=== PATIENT | female | born 1960 | race Caucasian/White ===

== ENCOUNTER 2024-04-27 09:30 | Emergency (ER) | payer MEDICARE ==
[~2024-04-27] VITALS: Ht 165.1 cm; Wt 77.3 kg
[2024-04-27 09:32] VITALS: TEMP 97.5
[2024-04-27 10:41] LABS: BASOPHILS % (AUTO) 0.1 % (0-1); EOSINOPHILS % (AUTO) 0.1 % (0-6); HEMATOCRIT 41.9 % (35.0-45.0); HEMOGLOBIN 14.2 g/dl (12.0-16.0); LYMPHOCYTES # (AUTO) 0.8 X10'3 (1.1-4.8); LYMPHOCYTES % (AUTO) 25.2 % (21-51); MEAN CORPUSCULAR HEMOGLOBIN 28.4 PG (27.0-31.0); MEAN CORPUSCULAR VOLUME 83.5 FL (78-98); MEAN PLATELET VOLUME 8.1 FL (7.4-10.4); MONOCYTES # (AUTO) 0.3 X10'3 (0-0.9); MONOCYTES % (AUTO) 8.7 % (2-12); NEUTROPHILS # (AUTO) 2.2 X10'3 (1.8-7.7); NEUTROPHILS % (AUTO) 65.9 % (42-75); PLATELET COUNT 122 X10'3 (140-440); RED BLOOD COUNT 5.02 X10'6 (4.20-5.60); RED CELL DISTRIBUTION WIDTH 13.6 % (11.5-14.5); WHITE BLOOD COUNT 3.3 X10'3 (4.5-11.0)
[2024-04-27 10:55] LABS: ALBUMIN 3.5 G/DL (3.4-5.0); ANION GAP 6 (8-16); BLOOD UREA NITROGEN 13 MG/DL (7-18); BUN/CREATININE RATIO 17.8 (10.0-20.0); CALCIUM 9.6 MG/DL (8.5-10.1); CHLORIDE 103 MMOL/L (99-107); CREATININE 0.73 MG/DL (0.40-0.90); GLUCOSE 88 MG/DL (70-104); POTASSIUM 3.6 MMOL/L (3.5-5.1); SODIUM 140 MMOL/L (135-145); TOTAL CARBON DIOXIDE 31.3 MMOL/L (24-32); eCRCL 72 ML/MIN; eGFR 81 ML/MIN
[2024-04-27] MEDS: meclizine 12.5mg tablet PO ONE (11:56)
[2024-04-27] MEDS ORDERED: MECL-302 PO (12:01)
[2024-04-27] MEDS: potassium Cl 20 mEq SR tablet PO ONE (12:01)
[2024-04-27 13:12] VITALS: BP 144/92; PULSE 61; RESP 16; O2SAT 97
== END 2024-04-27 13:14 | disposition home or self-care (01) ==
LOC: ER 09:30
DX: R42 Dizziness and giddiness (principal); I10 Essential (primary) hypertension; Z79.899 Other long term (current) drug therapy
CPT/HCPCS: 36415; 80048; 85025; 99283; J8597

== ENCOUNTER 2024-04-27 13:58 | Emergency (ER) | payer MEDICARE ==
[~2024-04-27] VITALS: Ht 162.6 cm; Wt 68.0 kg
[~2024-04-27 13:58] MED LIST: MECL-302 PO
[2024-04-27 16:48] VITALS: BP 132/82; PULSE 84; RESP 18; TEMP 98.4; O2SAT 97
== END 2024-04-27 16:51 | disposition home or self-care (01) ==
LOC: ER 13:59
DX: M71.21 Synovial cyst of popliteal space [Baker], right knee (principal); M25.561 Pain in right knee; M17.11 Unilateral primary osteoarthritis, right knee; Z79.899 Other long term (current) drug therapy
CPT/HCPCS: 73564; 76881; 99284

== ENCOUNTER 2024-12-10 20:23 | Inpatient (IN) | payer MEDICARE, OTHER ==
[~2024-12-10] VITALS: Ht 165.1 cm; Wt 80.5 kg
--- NOTE | 2024-12-10 20:39 | ELECTROCARDIOGRAPH REPORT ---
[facility] Test Date: 2024-12-10 Test Time: 20:35:42 Pat Name: EVAN THORPE Department: EMERGENCY ROOM Room: Gender: F Golf Sales Manager: KATIE : 1960 Requested By: JAMAL RAMIREZ Order Number: [id number] Reading MD: Measurements Intervals [place] Rate: 103 P: 46 RI: 149 QRS: 121 QRSD: 103 T: 22 QT: 352 QTc: 461 Interpretive Statements Sinus tachycardia Left posterior fascicular block Low voltage, precordial leads Please click the below link to view image of tracing.
--- NOTE | 2024-12-10 21:19 | RADIOLOGY REPORT ---
EXAM: DI CHEST,SINGLE VIEW TECHNIQUE: Single frontal chest radiograph CLINICAL HISTORY: CP COMPARISON: None Findings/Impression: Frontal chest radiograph demonstrates no acute osseous or superficial soft tissue abnormalities. The trachea is midline. The cardiac silhouette and mediastinum are within normal limits. No pneumothorax, pleural effusions, or consolidations.
--- NOTE | 2024-12-10 21:23 | Physician Documentation ---
History of Present Illness Chief Complaint: Abdominal Pain Stated Complaint: VOMITING OK to notify your PCP?: Yes Primary Medical Doctor: DR. MCKEON Source: patient Mode of Arrival: POV Exam Limitations: no limitations HPI 64-year-old female presents with epigastric abdominal pain pain beneath lower portion of bilateral ribs for the past hour. She was recently at a birthday libertarian 2 hours prior and felt normal. She has had nausea vomiting and diarrhea. She has a history of cholecystectomy. No daily ETOH intake or history of pancreatitis. The home Additional note by Benjamin Ramirez, DO: I took over the care of this patient from previous physician. I reviewed any previous notes available, obtain my own history, review of systems and physical examination was performed by myself. This is a 64-year-old female status post cholecystectomy many years ago, presents for evaluation of right upper quadrant abdominal pain that began shortly prior to arrival in the emergency department. Sudden onset. Severe cramping pain. Accompanied by nausea and vomiting. Does report some diarrhea. The particular palliating factors. Did not attempt to treat it. Reports chills. Denies any fever, denies chest pain or difficulty breathing. No concern for tobacco, alcohol or illicit substances abuse. Medication Reconciliation Allergies: Coded Allergies: No Known Allergies (Unverified , 04/27/24) Scheduled PRN Meclizine HCl (Meclizine HCl), 1 TAB PO Q6H PRN for vertigo Review of Systems All Other Systems at this time: Reviewed and Negative ROS 10 point review of systems was performed and unless noted above in HPI is negative for acute process/complaint. Physical Exam Vital Signs: RN Vital Signs have been reviewed: Yes, Temperature: 99.4, Source: Oral, Heart Rate: 110, Respiratory Rate: 20, BP: 151/90, Pulse Oximetry: 96, Weight: 80.500 Oxygen Flow Rate: 0 Pulse Oximetry Reflects: adequate oxygenation Physical Exam GENERAL: Awake, alert, oriented, GCS 15, no apparent distress, non-toxic appearing, answers questions, follows commands appropriately. Examined in bed 8., accompanied by significant other HEENT: Atraumatic, normocephalic, pupils equal, extraocular muscles intact, sclerae anicteric, mucus membranes moist, oropharynx is clear, no stridor. NECK: supple, full active range of motion, trachea midline, no thyromegaly, no lymphadenopathy, no JVD. CARDIOVASCULAR: regular rate/rhythm, no murmurs/gallops/rubs, Pulses are 2+ in all extremities and symmetric. Capillary refill less than 2 seconds. PULMONARY: Nonlabored, good air movement ,no respiratory distress, speaking in full sentences, clear to auscultation bilaterally, no wheezing, no ronchi, no rales, no accessory muscle use. GASTROINTESTINAL: Soft, right upper quadrant tenderness to palpation reproducing chief complaint, non-distended, normal active bowel sounds, no organomegaly, no pulsatile masses, no CVA tenderness. NEUROLOGIC: Lucid with normal mental status. Normal facial symmetry. Moves all extremities symmetrically and with purpose. No truncal ataxia. Speech is fluid without evidence of dysarthria or aphasia, no focal deficits appreciated. MUSCULOSKELETAL: There is full range of motion of all extremities. There is no joint pain or joint swelling or joint erythema. There is no muscle pain or tenderness or swelling. EXTREMITIES: warm, well-perfused, no cyanosis, no clubbing, no edema, no acute deformities. Skin: warm, dry, no rashes or lesions, no jaundice, no petechiae orpurpura. No ecchymosis. PSYCHIATRIC: Normal affect, normal insight, normal concentration. Focused exam: [No guarding or rebound] Progress Results/Orders Results/Orders Vital Signs 12/10/24 20:35 Temp 99.4 Pulse 110 Resp 20 B/P (MAP) 151/90 Pulse Ox 96 O2 Flow Rate 0 Medical Decision Making Findings Facility Status: ED Holds, [facility] The plan was discussed with the patient, who demonstrates clear understanding of the plan and is in agreement with the plan unless otherwise noted in the chart. All questions have been answered, all concerns were addressed unless otherwise documented. I was available throughout their ED stay for frequent reassessment and questions. Differential Diagnoses (considered and possible or likely): [Differential diagnosis considered includes acute appendicitis, acute cholecystitis, pancreatitis, gastritis, PUD, diverticulitis, mesenteric ischemia, abdominal aortic aneurysm, bowel obstruction, enteritis, colitis, fecal impaction, volvulus, IBS, inflammatory bowel disease, specific food intolerance, peritonitis, perforated viscous, malignancy, UTI, abscess, and abdominal pain NOS. Pelvic source of pain was also considered including endometritis, dysmenorrhea, ovarian cyst, ovarian torsion, PID, TOA, cervicitis, vaginitis, or uterine fibroid. History, physical exam, and workup exclude many of the more serious causes listed above. ] ??Differential Diagnoses (considered and unlikely, not requiring evaluation currently): [Aortic/great vessels dissection was considered but it is unlikely based on absence of ripping, tearing, migratory chest pain, absence of syncope or focal neurologic deficits, physical examination indicating equal and symmetric pulses.] MDM Data Please see [facility] for the following: Independent Historians and external Records Review. Historian: [Patient] Independent Historians: ?[None] Medication Management: [Reviewed medication list] Social History and determinants: [Reviewed] Please see the body of the note for the following: Any independent interpretations of ECG, imaging studies. All vitals signs/haemodynamics, ordered tests were independently reviewed and interpreted by myself. Nursing triage complaint and vitals reviewed, additional nursing notes were reviewed as available and I agree unless otherwise noted or documented in contradiction in the chart Vital Signs: Independently reviewed Labs: Independently interpreted Imaging: Independently interpreted Old Medical Records: Independently reviewed, see [facility] for relevant summary and information Pulse Oximetry: [97%] interpreted as [normal on room air] by me [Almond Paste Mixer: [Regular Rate, Regular rhythm, no ectopy, NSR] reviewed and interpreted by me] Additionally notably showing: [Hemodynamics reviewed. Initially tachycardic, improved with rest and fluids and pain palliation. No evidence of hypotension respiratory distress. CBC shows leukopenia, 90% neutrophilic predominance, thrombocytopenia. No anemia. Chemistry shows markedly elevated bilirubin, AST, ALT, alkaline us for any this concerning for biliary obstruction. Lipase is normal. Ethanol was negative. CT of the abdomen and pelvis shows biliary obstruction. Duodenal diverticulum noted.] Tests considered but not ordered include: [Initially did not consider ultrasound considering the patient is post cholecystectomy] Social Determinants of Health Impact: Patient was evaluated in [facility], or [facility] [place] access to healthcare due to below par ratio of patient to medical providers. [] Comorbid Conditions Impacting Present Evaluation and Care/Treatment: [See list] Management Discussions with other Healthcare Providers: [Hospitalist regarding admission] Treatment and Disposition Medication Management (Given or considered): [Pain and nausea management]. See EMR for details Consideration for Hospitalization/Escalation/Deescalation of Care: Admission for inpatient treatment is necessary for further management of her biliary obstruction with the GI and surgical consultation ?ED Course:?[Pain improved] ?Shared decision making:?[] Code status:?FULL Please see the full Electronic Medical Record for full details of nursing documentation, medications list, other records of complete past medical history and conditions, vital signs, laboratory studies, and any radiologic study interpretations by radiologists. Portions of this note were completed using [employer] dictation software and as a result there may exist minor errors in spelling. I have reviewed elements of past family and social history and agree as included in note. Departure Disposition: 09 ADMITTED INPATIENT Admitted to Inpatient Unit: to hospitalist Impression: Primary Impression: Biliary obstruction Additional Impressions: Right upper quadrant pain Nausea and vomiting Status post cholecystectomy Referrals: NO PRIMARY CARE PROVIDER (PCP) Additional Comment Medical Screen Exam This patient recieved a medical screening examination. After reviewing the individual's medical complaints with presenting symptoms and performing an appropriate physical examination, it was determined that no immediate life- threatening emergency medical condition is present. This individual is also not a women having contractions. Signature Scribe Signature: No scribe Attestation: This note accurately reflects clinical decisions, work performed by myself, DO JAXON Gallegos ASHLEY D FNP Dec 10, 2024 21:23 BENJAMIN RAMIREZ DO Dec 11, 2024 01:08
[2024-12-10 21:29] LABS: BASOPHILS % (AUTO) 0.2 % (0-1); EOSINOPHILS % (AUTO) 0 % (0-6); HEMATOCRIT 43.6 % (35.0-45.0); HEMOGLOBIN 15.2 g/dl (12.0-16.0); LYMPHOCYTES # (AUTO) 0.3 X10'3 (1.1-4.8); LYMPHOCYTES % (AUTO) 8.1 % (21-51); MEAN CORPUSCULAR HEMOGLOBIN 28.3 PG (27.0-31.0); MEAN PLATELET VOLUME 8.4 FL (7.4-10.4); MONOCYTES # (AUTO) 0.1 X10'3 (0-0.9); NEUTROPHILS # (AUTO) 3.5 X10'3 (1.8-7.7); NEUTROPHILS % (AUTO) 89.7 % (42-75); PLATELET COUNT 111 X10'3 (140-440); RED BLOOD COUNT 5.38 X10'6 (4.20-5.60); RED CELL DISTRIBUTION WIDTH 15.3 % (11.5-14.5); WHITE BLOOD COUNT 3.9 X10'3 (4.5-11.0)
[2024-12-10 21:56] LABS: ALANINE AMINOTRANSFERASE 222 U/L (12-78); ALBUMIN 3.9 G/DL (3.4-5.0); ALBUMIN/GLOBULIN RATIO 1.2 (1.1-1.5); ALKALINE PHOSPHATASE 264 IU/L (46-116); ANION GAP 9 (8-16); ASPARTATE AMINO TRANSFERASE 483 U/L (10-37); BILIRUBIN,TOTAL 3.7 MG/DL (0.1-1.0); BLOOD UREA NITROGEN 10 MG/DL (7-18); BUN/CREATININE RATIO 12.5 (10.0-20.0); CALCIUM 9.4 MG/DL (8.5-10.1); CHLORIDE 102 MMOL/L (99-107); GLUCOSE 151 MG/DL (70-104); LIPASE 24 U/L (16-77); PRO BRAIN NATRIURETIC PEPTIDE 100 PG/ML (0-125); SODIUM 142 MMOL/L (135-145); TOTAL CARBON DIOXIDE 30.6 MMOL/L (24-32); TOTAL PROTEIN 7.1 G/DL (6.4-8.2); eCRCL 65 ML/MIN; eGFR 72 ML/MIN
[2024-12-10 22:04] LABS: POTASSIUM 2.7 MMOL/L (3.5-5.1)
[2024-12-10] MEDS ORDERED: POTASSIUM BICARB 20meq eff tab 20 MEQ TABLET.EFF PO ONE (22:15)
[2024-12-10] MEDS ORDERED: iohexol 300mg/ml 100ml inj. ONE (22:54)
[2024-12-10 23:31] LABS: ETHANOL < 10 MG/DL (<10)
[2024-12-10] MEDS: potassium Cl 20 mEq SR tablet PO STA (23:52)
--- NOTE | 2024-12-11 00:35 | RADIOLOGY REPORT ---
CT OF THE ABDOMEN AND PELVIS WITH CONTRAST. HISTORY: abd pain COMPARISON: None TECHNIQUE: Helical axial CT images of the abdomen and pelvis were obtained with intravenous contrast. Multiplanar reformats. One or more of the following radiation dose reduction techniques were used fo r this examination: automated exposure control, adjustment of the mA and/or kV according to patient s ize, use of iterative reconstruction technique. FINDINGS: Imaged lung bases are grossly clear. Hepatobiliary: Intra and extrahepatic biliary ductal dilatation. The common bile duct is dilated to approximately 2.4 cm, tapering distally. The gallbladder is surgically absent. Of note, there is an a ir and debris filled diverticulum which appears to arise from the medial aspect of the distal 2nd por tion of the duodenum. This measures approximately 3 x 2 cm in axial dimensions and extends to the amp man, compressing the anterior aspect of the distal common bile duct. Pancreas: Fatty atrophic changes. Spleen: Negative. Adrenal Glands: Negative. Kidneys and collecting system: No hydroureteronephrosis. Retroperitoneum: No evidence of abdominal aortic aneurysm. Lymph nodes: No discretely enlarged lymph nodes identified. Bowel: No evidence of bowel obstruction. Normal caliber appendix. No free intraperitoneal air or flui d identified. Colonic diverticulosis without definite CT evidence of diverticulitis at this time. Pelvis: No sizable bladder calculus. Osseous structures: No destructive osseous lesions identified. Advanced degenerative changes at L5-S1 with grade 1 anterolisthesis and associated bilateral pars defects. 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 Recommend GI/Ross rgical consultation.
[2024-12-11] MEDS: ondansetron/PF 4mg/2ml inj IV ONE (01:11)
[2024-12-11] MEDS: morphine 4 MG/ML inj SYRINge IV ONE (01:11)
--- NOTE | 2024-12-11 01:23 | RADIOLOGY REPORT ---
EXAM: US ULTRASOUND OF ABDOMEN HISTORY: ruq pain COMPARISON: None TECHNIQUE: Real-time grayscale and color flow images of the abdomen were obtained. Findings/ IMPRESSION: Liver measures 16 cm craniocaudal with normal echotexture. Portal vein demonstrates hepatopetal flow. The gallbladder is surgically absent. Common bile duct measuring 0.5 cm. Pancreas not visualized due to overlying bowel gas. The right kidney measures 10 cm in length without evidence of stones or hyd ronephrosis.
[2024-12-11] MEDS ORDERED: HYDR25TA4 PO (01:40)
[2024-12-11] MEDS ORDERED: LEVO150T8 PO (01:40)
[2024-12-11] MEDS ORDERED: ASPI-1468 PO (01:40)
[2024-12-11] MEDS ORDERED: ACYC-126 PO (01:40)
[2024-12-11] MEDS ORDERED: COLC0.6T72 PO (01:40)
[2024-12-11] MEDS ORDERED: HYDR-3964 PO (01:40)
[2024-12-11] MEDS ORDERED: TRAZ-251 (01:40)
[2024-12-11] MEDS ORDERED: NAPR-1168 PO (01:40)
[2024-12-11] MEDS ORDERED: LIOT5TAB10 PO (01:40)
[2024-12-11] MEDS ORDERED: SEMA0.258 SQ (01:40)
[2024-12-11] MEDS ORDERED: ENAL-78 PO (01:40)
[2024-12-11] MEDS ORDERED: magnesium sulf-water 2g/50mL 50 ML IV PRN (03:10)
[2024-12-11] MEDS ORDERED: morphine 2 MG/ML inj. syringe IV PRN (03:10)
[2024-12-11] MEDS ORDERED: magnesium sulf-water 4G/100mL 100 ML IV PRN (03:10)
[2024-12-11 03:17] VITALS: BP 105/70; PULSE 95; RESP 16; TEMP 97.7; O2SAT 94
--- NOTE | 2024-12-11 03:17 | HISTORY AND PHYSICAL-Residence ---
History & Physical Providers to CC Resident Creating Document: EDWARD TORRES, RES ~ History of Present Illness Primary Medical Doctor: DR. MCKEON Reason for Admit\Complaint: Abdominal pain History of Present Illness This is a 64-year-old female with past medical history of cholecystectomy, hypertension, hypothyroidism came to the ER with a chief complaint of upper abdominal pain which started at 3:00 p.m. after a birthday libertarian. She described the pain as dull aching, located in the epigastric and right upper quadrant region, nonradiating, constant, 7/10. She also had associated nausea and three episodes of vomiting, also had did four episodes of loose and watery bowel movements. Also complained of fever with chills.. Nobody from the libertarian had similar symptoms. Denies any recent travel history. Denies any similar complaints. Allergies: Coded Allergies: No Known Allergies (Unverified , 04/27/24) Home Medications Home Medications Active Reported Hydrocodon-Acetaminophen 5-325 (Hydrocodone Bit/Acetaminophen) 5 Mg-325 Mg Tablet 1 Tab PO Q4H PRN Aspirin EC (Aspirin) 325 Mg Tablet.dr 1 Tab PO DAILY Acyclovir 400 Mg Tablet 1 Tab PO TID Trazodone HCl 50 Mg Tablet Hydrochlorothiazide 25 Mg Tablet 1 Tab PO BID Liothyronine Sodium 5 Mcg Tablet 1 Tab PO DAILY Levothyroxine Sodium 150 Mcg Tablet 1 Tab PO DAILY Enalapril Maleate 10 Mg Tablet 1 Tab PO DAILY Ozempic (Semaglutide) 0.25 Mg/0.368 Ml Pen.injctr 0.5 Mg SQ Q7D Naproxen 500 Mg Tablet 1 Tab PO BID Colchicine 0.6 Mg Tablet 1 Tab PO DAILY Past Medical History Past Medical History Hypertension Hypothyroidism Past Surgical History Surgical History Comment Cholecystectomy in 1995 Past Social History Social History Comment Denies any history of smoking Quit drinking alcohol in 2012 Denies any history of drug use Lives with her at home. ROS All Other Systems: Reviewed and Negative Constitutional: Denies: no symptoms reported, see HPI, chills, diaphoresis, fever, malaise, weakness, other Eyes: Denies: no symptoms reported, see HPI, pain, discharge, blurred vision, double vision, itching, photophobia, redness, tearing, other ENT: Denies: no symptoms reported, see HPI, ear pain, ear bleeding, ear discharge, hearing loss, ear ringing, nose pain, nose bleeding, nose congestion, nose discharge, throat pain, throat swelling, voice change, mouth pain, mouth bleeding, mouth swelling, other Respiratory: Denies: no symptoms reported, see HPI, cough, orthopnea, shortness of breath, SOB with exertion, SOB at rest, stridor, wheezing, hemoptysis, pain with breathing, other Cardiovascular: Denies: no symptoms reported, see HPI, chest pain, left arm pain, diaphoresis, lightheadedness, syncope, edema, palpitations, irregular heart rate, other Gastrointestinal: Reports: abdominal pain, vomiting Genitourinary: Denies: no symptoms reported, see HPI, burning, discharge, dysuria, frequency, flank pain, hematuria, incontinence, pain, decreased urine output, urgency, other Neurological: Denies: no symptoms reported, see HPI, speech problem, headache, dizziness, fainting, tingling, left sided numbness, right sided numbness, left sided weakness, right sided weakness, problems walking, unable to move lower ext, unable to move upper ext, petit mal seizures, tonic-clonic seizures, cognitive dysfunction, other Musculoskeletal: Denies: no symptoms reported, see HPI, pain, swelling, back pain, gout, joint pain, joint swelling, muscle pain, muscle swelling, muscle stiffness, neck pain, other Exam Vitals: Vital Signs Date Time Temp Pulse Resp B/P (MAP) Pulse Ox O2 Delivery O2 Flow Rate FiO2 12/11/24 02:54 16 12/11/24 00:22 99.4 82 136/76 (96) 96 0 General: General Awake and Alert, in mild distress because of pain HEENT: Conjunctiva pink, Sclera clear Neck: Supple without masses and tenderness. Resp: Bilateral breath sounds are clear. Heart: Regular Rate and rhythm, normal S1 and S2 without murmur, rub or gallop. Abdomen: Soft , diffuse tenderness, no guarding, no rigidity, bowel sounds heard, no organomegaly Extremities: No cyanosis,clubbing, no pedal Skin: Warm and Dry. Neurology: No focal motor or sensory deficits. Diagnostic Data Last Recorded Lab Results: 12/10/24210112/10/242101 Advance Care Planning Advanced Care plannin - 30 Minutes (I spent 17 minutes in discussing various resuscitative measures, the patient chose to be full code.) Additional Plan Assessment This is a 64-year-old female with history of cholecystectomy came to the ER with a chief complaint of abdominal pain. Plan Abdominal pain likely secondary to biliary obstruction AST, ALT 483, 222, alk-phos 264, total bilirubin 3.7 Lipase levels normal WBC count normal, procalcitonin ordered Direct bilirubin levels ordered Abdominal CT showed distal biliary obstruction secondary to periampullary duodenal diverticulum. Abdominal ultrasound shows CBD measuring 0.5 cm NPO. Pain management-morphine p.r.n. Started on Zosyn and D5 NS Consult gastroenterology in the morning for possible endoscopy/ERCP. Hypokalemia Potassium 2.7 Started on potassium replacement protocol. History of hypertension Patient's blood pressure is in the normal range Continue patient's home medication hydrochlorothiazide 25 mg and enalapril 10 mg daily History of hypothyroidism Continue patient's home medication levothyroxine and liothyronine Code status: Full code DVT prophylaxis: Heparin Diet: NPO Lines/tubes: Peripheral IV line State: Guarded Edward Torres M.D PGY1 pt was seen and discussed with resident team Biliary obstruction suspected GI /Surgery consult Zosyn started IVF NPO pain control/antiemetics Date of Service: Dec 11, 2024 Billing Provider: PARK ARTEAGA MD, PRAVAHIKA, RES Dec 11, 2024 03:17 PARK ARTEAGA MD Dec 11, 2024 08:22
[2024-12-11 03:22] LABS: BILIRUBIN,URINE NEGATIVE (Neg); CLARITY,URINE CLEAR (Clear); GLUCOSE, URINE NEGATIVE (Neg); KETONES,URINE NEGATIVE (Neg); LEUKOCYTE ESTERASE ,URINE NEGATIVE (Neg); NITRITES, URINE NEGATIVE (Neg); OCCULT BLOOD,URINE TRACE-INTACT (Neg); PH,URINE 6.5 (4.8-8.0); PROTEIN,URINE 30 mg/dl (Neg)
[2024-12-11] MEDS: normal saline 1000ml 1,000 ML IV SCH (03:31)
[2024-12-11 03:32] LABS: COLOR,URINE GREEN (Yellow); UA COLLECTION TYPE CLN CATCH MIDSTREAM
[2024-12-11 03:34] LABS: BACTERIA,URINE NONE SEEN /HPF (Neg); SQUAMOUS EPITHELIAL CELL,UR FEW /LPF (FEW)
[2024-12-11 03:35] LABS: WBC,URINE NONE SEEN /HPF (0-4)
[2024-12-11] MEDS: acetaminophen 325mg tablet PO PRN (04:12)
[2024-12-11 06:15] LABS: BILIRUBIN,DIRECT 2.9 MG/DL (0-0.3); MAGNESIUM 1.1 MG/DL (1.5-2.4); POTASSIUM 3.1 MMOL/L (3.5-5.1)
[2024-12-11 06:50] VITALS: BP 101/61; PULSE 88; RESP 20; TEMP 98.3; O2SAT 94
[2024-12-11 08:00] VITALS: RESP 18; O2SAT 98
[2024-12-11] MEDS: heparin, porcine 5000 units/ml vial SQ SCH (08:00)
[2024-12-11] MEDS: docusate sod 100mg capsule PO SCH (08:30)
[2024-12-11] MEDS: piperacillin/tazo 3.375gm/50ml 50 ML IV SCH (08:32)
[2024-12-11] MEDS: potassium Cl 20 mEq SR tablet PO PRN (08:48)
[2024-12-11] MEDS: magnesium Cl slow-release 64mg tablet PO PRN (08:48)
[2024-12-11] MEDS: K and/or MAG REPLACEMENT MC SCH (08:49)
[2024-12-11] MEDS: dextrose 5%-normal saline 1,000 ML IV SCH (08:51)
[2024-12-11] MEDS: ondansetron/PF 4mg/2ml inj IV PRN (08:58)
--- NOTE | 2024-12-11 09:51 | CONSULTATION REPORT - RESIDENT ---
Consult Providers to CC Resident Creating Document: BECK COREYIGNACIOARIES GERMAIN CC: JEFFREY SAUL MD History of Present Illness Reason for Admit\Complaint: Abdominal pain History of Present Illness Patient is a 64-year-old female with history of hypertension, hypothyroidism and obesity who came to the ED due to abdominal pain. Patient reports pain started yesterday around 3:00 p.m., posterior to ingesting cake at a birthday libertarian. Patient had difficulty describing the pain, but she stated that it felt like something pushing below her ribs, pain was bandlike across her upper quadrant, nonradiating, 10/10 in intensity, constant, lasted for several hours, improved with pain medications in ER, accompanied by nausea and 5 episodes of vomiting containing flank in some food residue. She states this was the 1st time she experienced this type of pain. Currently pain is mild. GI has been consulted for consideration of EGD/ERCP. Allergies: Coded Allergies: No Known Allergies (Unverified , 04/27/24) Home Medications Home Medications Active Reported Hydrocodon-Acetaminophen 5-325 (Hydrocodone Bit/Acetaminophen) 5 Mg-325 Mg Tablet 1 Tab PO Q4H PRN Aspirin EC (Aspirin) 325 Mg Tablet.dr 1 Tab PO DAILY Acyclovir 400 Mg Tablet 1 Tab PO TID Trazodone HCl 50 Mg Tablet Hydrochlorothiazide 25 Mg Tablet 1 Tab PO BID Liothyronine Sodium 5 Mcg Tablet 1 Tab PO DAILY Levothyroxine Sodium 150 Mcg Tablet 1 Tab PO DAILY Enalapril Maleate 10 Mg Tablet 1 Tab PO DAILY Ozempic (Semaglutide) 0.25 Mg/0.368 Ml Pen.injctr 0.5 Mg SQ Q7D Naproxen 500 Mg Tablet 1 Tab PO BID Colchicine 0.6 Mg Tablet 1 Tab PO DAILY Past Medical History Past Medical History Hypertension, hypothyroidism and obesity Past Surgical History Surgical History Comment Cholecystectomy, 1995 Hysterectomy, 1992 Family History Family History: FH: atrial fibrillation MOTHER Past Social History Social History Comment Nonsmoker, nondrinker, denies recreational drugs Lives with Independent Retired construction safety consultant ROS ROS All systems were reviewed and found negative except pertinent positives mentioned in HPI Exam Vitals: Vital Signs Date Time Temp Pulse Resp B/P (MAP) Pulse Ox O2 Delivery O2 Flow Rate FiO2 12/11/24 06:50 98.3 88 20 101/61 (74) 94 Room Air 6/9/25 00:22 0 General: General: awake, alert oriented to place, time, and person HEENT: Mild pallor present, no significant icterus, moist mucous membranes Neck: No masses and tenderness Resp: Unlabored. Lungs clear to auscultation bilaterally. Chest: Normal expansion Cardiovascular: Regular Rate and rhythm, normal S1 and S2 without murmur, rub or gallop Abdomen: Soft and mildly tender in left flank, no organomegaly, no guarding and rigidity, bowel sounds present Neuro: No weakness in the upper and lower limb muscles, power of the muscles 5/5 bilateral upper and lower muscles, knee reflex present bilaterally. Cranial nerves intact Extremities: No cyanosis,clubbing or edema Skin: Warm and Dry. No lesions Psych: Normal affect Diagnostic Data Last Recorded Lab Results: 12/10/24210112/11/24 0531 Additional Plan Patient is a 64-year-old female with history of hypertension, hypothyroidism and obesity who came to the ED due to abdominal pain. GI has been consulted for further evaluation and consideration of EGD/ERCP. Abdominal pain Possible biliary obstruction History of cholecystectomy Obesity Constipation Patient with upper quadrant abdominal pain, nausea and vomiting. No similar episodes in the past Currently abdominal pain has significantly decreased, and it is mostly located on left flank Patient had an EGD several years ago. Does not recall the results Last colonoscopy was 2 months ago. 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 Recommend GI/Surgical consultation Abdominal ultrasound shows liver measures 16 cm craniocaudal with normal echotexture. Portal vein demonstrates hepatopetal flow. The gallbladder is surgically absent. Common bile duct measuring 0.5 cm. Pancreas not visualized due to overlying bowel gas. The right kidney measures 10 cm in length without evidence of stones or hydronephrosis. Patient is on Zosyn Patient takes Ozempic for weight loss Currently NPO Patient discussed in detail with Dr. Amado, plan: -Biliary obstruction unlikely to be from periampullary diverticulum. However not impossible. Patient might benefit from endoscopic evaluation -Start patient on clear liquids -NPO after midnight -Repeat LFTs tomorrow -Continue conservative management for now Other comorbidities include: Hypertension Hypothyroidism Management per hospitalist team Disposition: Continue care in surgical unit, start clear liquids. NPO after midnight Ignacio Garcia MD Internal Medicine Resident PGY-1 Date of Service: Dec 11, 2024 Billing Provider: JEFFREY SAUL MD, LEONARDO LUIS Dec 11, 2024 09:51
[2024-12-11 11:00] VITALS: BP 118/70; PULSE 71; RESP 18; TEMP 97; O2SAT 98
[2024-12-11] MEDS: magnesium hydroxide 30ml (MOM) UD suspension PO PRN (11:11)
[2024-12-11 14:30] LABS: BASOPHILS % (AUTO) 0 % (0-1); EOSINOPHILS % (AUTO) 0.1 % (0-6); HEMATOCRIT 37.9 % (35.0-45.0); HEMOGLOBIN 13.3 g/dl (12.0-16.0); LYMPHOCYTES # (AUTO) 0.3 X10'3 (1.1-4.8); LYMPHOCYTES % (AUTO) 4.4 % (21-51); MEAN CORPUSCULAR HEMOGLOBIN 28.8 PG (27.0-31.0); MEAN CORPUSCULAR HGB CONC 35.2 g/dL (33.0-36.5); MEAN CORPUSCULAR VOLUME 81.8 FL (78-98); MEAN PLATELET VOLUME 9.2 FL (7.4-10.4); MONOCYTES # (AUTO) 0.3 X10'3 (0-0.9); MONOCYTES % (AUTO) 4.3 % (2-12); NEUTROPHILS # (AUTO) 6.3 X10'3 (1.8-7.7); NEUTROPHILS % (AUTO) 91.2 % (42-75); PLATELET COUNT 97 X10'3 (140-440); RED BLOOD COUNT 4.64 X10'6 (4.20-5.60); RED CELL DISTRIBUTION WIDTH 15.3 % (11.5-14.5); WHITE BLOOD COUNT 6.9 X10'3 (4.5-11.0)
[2024-12-11 15:27] LABS: ALANINE AMINOTRANSFERASE 486 U/L (12-78); ALKALINE PHOSPHATASE 223 IU/L (46-116); ANION GAP 7 (8-16); ASPARTATE AMINO TRANSFERASE 439 U/L (10-37); BILIRUBIN,TOTAL 7.3 MG/DL (0.1-1.0); BLOOD UREA NITROGEN 12 MG/DL (7-18); BUN/CREATININE RATIO 15.8 (10.0-20.0); CALCIUM 8.8 MG/DL (8.5-10.1); CHLORIDE 105 MMOL/L (99-107); CREATININE 0.76 MG/DL (0.40-0.90); GLUCOSE 142 MG/DL (70-104); POTASSIUM 3.5 MMOL/L (3.5-5.1); SODIUM 141 MMOL/L (135-145); TOTAL PROTEIN 5.9 G/DL (6.4-8.2); eCRCL 68 ML/MIN; eGFR 77 ML/MIN
[2024-12-11 18:00] VITALS: BP 124/59; PULSE 85; RESP 17; TEMP 97.2; O2SAT 98
[2024-12-11] MEDS: morphine 2 MG/ML inj. syringe IV PRN (20:50)
[2024-12-11 22:00] VITALS: BP 111/65; PULSE 72; RESP 14; TEMP 96; O2SAT 97
[2024-12-12] VITALS (11 sets, daily range): BP systolic 117–149; BP diastolic 68–91; PULSE 65–83; RESP 13–18; TEMP 97.2–98.6; O2SAT 93–99
[2024-12-12] MEDS: traZODone 50mg tablet PO PRN (00:14)
[2024-12-12 04:55] LABS: BASOPHILS % (AUTO) 0.4 % (0-1); EOSINOPHILS % (AUTO) 0.4 % (0-6); HEMATOCRIT 35.8 % (35.0-45.0); HEMOGLOBIN 12.6 g/dl (12.0-16.0); LYMPHOCYTES # (AUTO) 0.4 X10'3 (1.1-4.8); LYMPHOCYTES % (AUTO) 10.5 % (21-51); MEAN CORPUSCULAR HEMOGLOBIN 28.6 PG (27.0-31.0); MEAN CORPUSCULAR HGB CONC 35.1 g/dL (33.0-36.5); MEAN CORPUSCULAR VOLUME 81.3 FL (78-98); MEAN PLATELET VOLUME 8.6 FL (7.4-10.4); MONOCYTES # (AUTO) 0.3 X10'3 (0-0.9); MONOCYTES % (AUTO) 7.1 % (2-12); NEUTROPHILS # (AUTO) 3.1 X10'3 (1.8-7.7); NEUTROPHILS % (AUTO) 81.6 % (42-75); PLATELET COUNT 79 X10'3 (140-440); RED CELL DISTRIBUTION WIDTH 15.3 % (11.5-14.5); WHITE BLOOD COUNT 3.8 X10'3 (4.5-11.0)
[2024-12-12 05:22] LABS: ALANINE AMINOTRANSFERASE 315 U/L (12-78); ALBUMIN 2.7 G/DL (3.4-5.0); ALKALINE PHOSPHATASE 174 IU/L (46-116); ANION GAP 5 (8-16); ASPARTATE AMINO TRANSFERASE 169 U/L (10-37); BILIRUBIN,TOTAL 5.7 MG/DL (0.1-1.0); BLOOD UREA NITROGEN 7 MG/DL (7-18); BUN/CREATININE RATIO 10.1 (10.0-20.0); CHLORIDE 105 MMOL/L (99-107); CREATININE 0.69 MG/DL (0.40-0.90); GLUCOSE 115 MG/DL (70-104); HDL CHOLESTEROL 46 MG/DL (35-60); LDL CHOLESTEROL 62 MG/DL (50-100); MAGNESIUM 1.6 MG/DL (1.5-2.4); SODIUM 140 MMOL/L (135-145); TOTAL CARBON DIOXIDE 29.9 MMOL/L (24-32); eCRCL 75 ML/MIN; eGFR 86 ML/MIN
[2024-12-12 05:39] LABS: CHOL/HDL RATIO 2.7 (0.00-4.99); CHOLESTEROL 123 MG/DL (0-200); TOTAL PROTEIN 5.4 G/DL (6.4-8.2); TRIGLYCERIDES 75 MG/DL (20-135)
[2024-12-12] MEDS: potassium Cl 40MEQ/1/2NS 520ml 520 ML IV PRN (08:15)
[2024-12-12] MEDS ORDERED: midazolam 1 mg/ML 2ml injection ONE (10:11)
[2024-12-12] MEDS ORDERED: propofol inj 20 ML IV ONE (10:11)
[2024-12-12] MEDS ORDERED: LIDOcaine 2% (20mg/ml) 5ml vial ONE (10:11)
[2024-12-12] MEDS ORDERED: fentaNYL/PF 50MCG/1 ML 2ML syringe ONE (10:11)
[2024-12-12] MEDS: potassium Cl 20 mEq SR tablet PO STA (11:53)
[2024-12-12] MEDS: potassium Cl 20 mEq SR tablet PO PRN (12:04)
--- NOTE | 2024-12-12 14:30 | PROGRESS NOTE- Residence ---
Progress Note - Resident Providers to CC Resident Creating Document: DEENA NOBLE RES ~ Antibiotic Timeout Antibiotic Ordered?: Yes Subjective Patient seen and examined at bedside. Requesting for ice chips. She is going to be taken for EGD later this morning. Objective Vital Signs Date Time Temp Pulse Resp B/P (MAP) Pulse Ox O2 Delivery O2 Flow Rate FiO2 12/12/24 11:30 81 17 126/78 93 Nasal Cannula 12/12/24 10:50 3.0 12/12/24 09:42 98.6 Result Diagram: 12/12/2442512/12/24425 General: awake, alert oriented to place, time, and person HEENT: Mild pallor present, no significant icterus, moist mucous membranes Neck: No masses and tenderness Resp: Unlabored. Lungs clear to auscultation bilaterally. Chest: Normal expansion Cardiovascular: Regular Rate and rhythm, normal S1 and S2 without murmur, rub or gallop Abdomen: Soft and mildly tender in left flank, no organomegaly, no guarding and rigidity, bowel sounds present Neuro: No weakness in the upper and lower limb muscles, power of the muscles 5/5 bilateral upper and lower muscles, knee reflex present bilaterally. Cranial nerves intact Extremities: No cyanosis,clubbing or edema Skin: Warm and Dry. No lesions Psych: Normal affect Assessment Assessment Patient is a 64-year-old female with history of hypertension, hypothyroidism and obesity who came to the ED due to abdominal pain. Plan Plan Acute abdominal pain under evaluation Possible biliary obstruction vs choledocholithiasis S/p cholecystectomy AST, ALT, ALP 439, 486, 223, total bilirubin 7.3 Lipase levels normal WBC count normal, procalcitonin ordered Abdominal CT showed distal biliary obstruction secondary to periampullary duodenal diverticulum. Abdominal ultrasound shows CBD measuring 0.5 cm Pain management-morphine p.r.n. Started on Zosyn and D5 NS 12/12/2024 Patient had EGD done this morning showing biliary sludge in the CBD, no obstruction noted. Continue Zosyn, follow up with repeat procalcitonin in a.m. There could be a possibility of choledocholithiasis where she might have passed the stone and hence LFTs down trending, but there is no CBD obstruction noted on imaging, low on differential diagnosis at this time LFTs and bilirubin downtrending Hypokalemia replacement per protocol History of hypertension Continue patient's home medication hydrochlorothiazide 25 mg and enalapril 10 mg daily History of hypothyroidism Continue patient's home medication levothyroxine and liothyronine Code Status: Full code DVT prophylaxis: Heparin Analgesia/sedation: Morphine/[place] Line/tube: PIV GI prophylaxis: None Nutrition: Regular diet Prognosis: Guarded Disposition: Continue medical management Deena Noble MD. IM Resident PGY-2 Date of Service: Dec 12, 2024 Billing Provider: SLAVA EDMONDS MD Common Visit Codes: [id number] INP/OBS CARE(HIGH) DEENA NOBLE, RES Dec 12, 2024 14:30 SLAVA EDMONDS MD Dec 13, 2024 07:41
[2024-12-12] MEDS: normal saline 1000ml 1,000 ML IV SCH (17:33)
[2024-12-12] MEDS: HYDROchlorothiazide 25mg tablet PO SCH (19:49)
[2024-12-13 04:59] LABS: HEMATOCRIT 35.8 % (35.0-45.0); HEMOGLOBIN 12.8 g/dl (12.0-16.0); MEAN CORPUSCULAR HEMOGLOBIN 28.7 PG (27.0-31.0); MEAN PLATELET VOLUME 8.5 FL (7.4-10.4); RED BLOOD COUNT 4.46 X10'6 (4.20-5.60)
[2024-12-13 05:03] LABS: BASOPHILS % (AUTO) 0.1 % (0-1); EOSINOPHILS % (AUTO) 0.2 % (0-6); LYMPHOCYTES # (AUTO) 0.4 X10'3 (1.1-4.8); LYMPHOCYTES % (AUTO) 14.3 % (21-51); MEAN CORPUSCULAR HGB CONC 35.8 g/dL (33.0-36.5); MEAN CORPUSCULAR VOLUME 80.3 FL (78-98); MONOCYTES # (AUTO) 0.3 X10'3 (0-0.9); MONOCYTES % (AUTO) 8.7 % (2-12); NEUTROPHILS # (AUTO) 2.3 X10'3 (1.8-7.7); NEUTROPHILS % (AUTO) 76.7 % (42-75); PLATELET COUNT 93 X10'3 (140-440); RED CELL DISTRIBUTION WIDTH 14.9 % (11.5-14.5)
[2024-12-13 05:15] LABS: ALANINE AMINOTRANSFERASE 178 U/L (12-78); ALBUMIN 2.6 G/DL (3.4-5.0); ALBUMIN/GLOBULIN RATIO 0.9 (1.1-1.5); ALKALINE PHOSPHATASE 153 IU/L (46-116); ANION GAP 4 (8-16); ASPARTATE AMINO TRANSFERASE 48 U/L (10-37); BILIRUBIN,TOTAL 2.5 MG/DL (0.1-1.0); BLOOD UREA NITROGEN 4 MG/DL (7-18); BUN/CREATININE RATIO 6.2 (10.0-20.0); CALCIUM 9.3 MG/DL (8.5-10.1); CHLORIDE 106 MMOL/L (99-107); CREATININE 0.65 MG/DL (0.40-0.90); GLUCOSE 90 MG/DL (70-104); MAGNESIUM 1.5 MG/DL (1.5-2.4); POTASSIUM 3.7 MMOL/L (3.5-5.1); SODIUM 142 MMOL/L (135-145); TOTAL CARBON DIOXIDE 32.3 MMOL/L (24-32); TOTAL PROTEIN 5.5 G/DL (6.4-8.2); eCRCL 80 ML/MIN; eGFR > 90 ML/MIN
[2024-12-13 05:24] LABS: PLATELET ESTIMATE DECREASED; TOTAL CELLS COUNTED 100
[2024-12-13 06:00] VITALS: BP 135/82; PULSE 87; RESP 16; TEMP 98; O2SAT 96
[2024-12-13] MEDS: colchicine 0.6mg tablet PO SCH (07:52)
[2024-12-13] MEDS: liothyronine sod 5mcg tablet PO SCH (07:52)
[2024-12-13] MEDS: levoTHYROXINE 75mcg tablet PO SCH (07:53)
[2024-12-13] MEDS: aspirin 325mg tablet, delayed-release (Ecotrin) PO SCH (07:53)
[2024-12-13] MEDS: lisinopril 20mg tablet PO SCH (07:55)
[2024-12-13] MEDS: mag hydrox/Alum hydrox/simeth 30ml oral suspension PO PRN (08:08)
[2024-12-13 08:13] VITALS: RESP 16
--- NOTE | 2024-12-13 09:21 | PROGRESS NOTE- Residence ---
Progress Note - Resident Providers to CC Resident Creating Document: IGNACIO LEIVA CC: JEFFREY SAUL MD ~ Antibiotic Timeout Antibiotic Ordered?: Yes Subjective Patient seen and examined at bedside. She is feeling much better. Denies abdominal pain, nausea, vomiting, or diarrhea. She is eager to go home Objective Vital Signs Date Time Temp Pulse Resp B/P (MAP) Pulse Ox O2 Delivery O2 Flow Rate FiO2 12/13/24 08:13 16 Room Air 12/13/24 07:55 87 12/13/24 06:00 98.0 135/82 (99) 96 12/12/24 20:00 0.0 Result Diagram: 12/13/2442212/13/24422 General: awake, alert oriented to place, time, and person HEENT: No pallor present, no significant icterus, moist mucous membranes Neck: No masses and tenderness Resp: Unlabored. Lungs clear to auscultation bilaterally. Chest: Normal expansion Cardiovascular: Regular Rate and rhythm, normal S1 and S2 without murmur, rub or gallop Abdomen: Soft and nontender, no organomegaly, no guarding and rigidity, bowel sounds present Neuro: No weakness in the upper and lower limb muscles, power of the muscles 5/5 bilateral upper and lower muscles, knee reflex present bilaterally. Cranial nerves intact Extremities: No cyanosis,clubbing or edema Skin: Warm and Dry. No lesions Psych: Normal affect Plan Plan Gastroenterology progress note: Patient is a 64-year-old female with history of hypertension, hypothyroidism and obesity who came to the ED due to abdominal pain. GI has been consulted for further evaluation and consideration of EGD/ERCP. Abdominal pain, resolved Transaminitis, improved Possible biliary obstruction ruled out History of cholecystectomy Obesity Constipation Patient admitted with upper quadrant abdominal pain, nausea and vomiting. No similar episodes in the past Currently abdominal pain has resolved Last colonoscopy was 2 months ago. Polyps were removed and she is due for a repeat colonoscopy in 5 years Labs today show: direct bilirubin 2.5, AST 48, ALT 178, ALP 153 CT scan of abdomen and pelvis shows: Distal biliary obstruction likely secondary to a periampullary duodenal diverticulum. Recommend GI/Surgical consultation Abdominal ultrasound shows liver measures 16 cm craniocaudal with normal echotexture. Portal vein demonstrates hepatopetal flow. The gallbladder is surgically absent. Common bile duct measuring 0.5 cm. Pancreas not visualized due to overlying bowel gas. The right kidney measures 10 cm in length without evidence of stones or hydronephrosis. Patient is on Zosyn Patient takes Ozempic for weight loss EGD performed yesterday demonstrated a large duodenal diverticulum without signs of obstruction of the papilla of Vater. Two benign appearing polyps were biopsied Patient discussed in detail with Dr. Amado, plan: - Continue regular diet - Obtain stool H. Pylori Ag - Repeat LFTs in 2 weeks - Follow up outpatinet Other comorbidities include: Hypertension Hypothyroidism Management per hospitalist team Disposition: Ok to OR from GI standpoint Ignacio Garcia MD Internal Medicine Resident PGY-1 Date of Service: Dec 13, 2024 Billing Provider: JEFFREY SAUL MD, LEONARDO LUIS Dec 13, 2024 09:20
[2024-12-13] MEDS: pantoprazole 40mg Tablet.DR PO SCH (10:50)
[2024-12-13] MEDS ORDERED: PANT40TA54 PO (10:51)
[2024-12-13 11:55] VITALS: BP 127/73; PULSE 72; RESP 14; TEMP 97.7; O2SAT 96
[2024-12-13] MEDS: LORazepam 2 mg/ml vial IV ONE (12:13)
[2024-12-13] MEDS ORDERED: METR-159 PO (12:54)
--- NOTE | 2024-12-13 13:18 | RADIOLOGY REPORT ---
[id number] MR MRCP Attending Name: SLAVA EDMONDS COMPARISON: CT done 12/10/2024. Ultrasound done 04/27/2024 INDICATION: elevate lfts TECHNIQUE: MRCP was performed without the use of intravenous contrast using a MRI imaging system. Three-dimensional MRCP was performed using maximum intensity projection reconstruction on an [facility] [employer] workstation under concurrent supervision. FINDINGS: Visualized lower thorax: Limited imaging of the thorax demonstrates no suspicious pleural or parenchy mal disease. Liver: Normal in morphology and signal intensity. Gallbladder: The gallbladder has been removed. Biliary system: There is slight prominence of the main intrahepatic bile ducts. There is enlargement of the main common bile duct in the dayo hepatis region measuring 2.5 cm. This tapers to normal diam eter in the pancreatic head. No filling defects or masses seen within the common duct Spleen: Enlarged measuring 16 cm in cephalocaudal dimensions. Pancreas: Normal in morphology and signal intensity. No dilatation of the pancreatic duct. Adrenal glands: Normal in morphology and signal intensity. Lymph nodes: No enlarged lymph nodes. Peritoneum: No ascites. IMPRESSION: 1. There is dilatation of the common bile duct in the dayo hepatis region tapering to a normal diame ter within the pancreatic head. No filling defects within the duct or in the pancreatic head. No dila tation of the pancreatic duct. 2. As the diameter of the common bile duct was normal on post cholecystectomy ultrasound the most lik larry diagnosis is either a stricture or mass at the sphincter of Oddi. Recommend ERCP
[2024-12-13] MEDS ORDERED: LEVO-65 PO (14:59)
--- NOTE | 2024-12-13 16:59 | PATHOLOGY REPORT ---
[facility] [address] [place] [address] SURGICAL PATHOLOGY REPORT CaseNumber: [id number] Surgeon:Mechelle Cedeño M.D. CLINICAL INFORMATION CLINICAL INFORMATION: Epigastric abdominal pain, abnormal CT of the GI tract, nausea with vomiting. DIAGNOSIS DIAGNOSIS: SMALL BOWEL, DUODENUM BULB; BIOPSY - BENIGN ULCER, SUBACUTE, GRANULATING, POLYPOID. MICROSCOPIC DESCRIPTION MICROSCOPIC DESCRIPTION: One slide is examined. Present is small intestinal mucosa which is ulcerated . The ulcer has a subacutely inflamed granulating tissue base. In areas, the granulating tissue has a polypoid appearance. There is no adenomatous or malignant change. (bb) GROSS DESCRIPTION GROSS DESCRIPTION: Received in a container of formalin labeled with the patient's name, number, and " duodenal bulb polyp" are 2 pieces of martin tissue 0.5 x 0.2 x 0.2 and 0.6 x 0.2 x 0.1 cm. The specimen is entirely submitted as A1. The time at which the specimen was removed was 1030. The time at which t he specimen was placed in formalin was 1030. Electronically signed by: Olaf Marr M.D. 12/13/2024 4:21:00 PM
--- NOTE | 2024-12-13 18:42 | DISCHARGE SUMMARY-Residence ---
Discharge Summary Providers to CC Resident Creating Document: RASHEEDA NOBLE RES ~ Discharge Summary Admission Diagnosis: biliary obstriction Hospital Course DATE OF ADMISSION: 12/11/2024 DATE OF DISCHARGE: 12/13/2024 Hospital course same as mentioned discharge summary. 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 Amado Complications: None Condition on DC: Stable New Medications: Levofloxacin (Levofloxacin) 500 Mg Tablet 1 TAB PO DAILY for 5 Days, #5 TAB Metronidazole* (Flagyl*) 500 Mg Tablet 1 TAB PO BID, #10 TAB Pantoprazole Sodium (Pantoprazole Sodium) 40 Mg Tablet. 40 MG PO BKF, #30 TAB.SR Continued Medications: Acyclovir (Acyclovir) 400 Mg Tablet 1 TAB PO TID Aspirin (Aspirin EC) 325 Mg Tablet. 1 TAB PO DAILY Colchicine (Colchicine) 0.6 Mg Tablet 1 TAB PO DAILY Enalapril Maleate (Enalapril Maleate) 10 Mg Tablet 1 TAB PO DAILY Hydrochlorothiazide (Hydrochlorothiazide) 25 Mg Tablet 1 TAB PO BID Hydrocodone Bit/Acetaminophen (Hydrocodon-Acetaminophen 5-325) 5 Mg-325 Mg Tablet 1 TAB PO Q4H PRN for pain Levothyroxine Sodium (Levothyroxine Sodium) 150 Mcg Tablet 1 TAB PO DAILY Liothyronine Sodium (Liothyronine Sodium) 5 Mcg Tablet 1 TAB PO DAILY Naproxen (Naproxen) 500 Mg Tablet 1 TAB PO BID Semaglutide (Ozempic) 0.25 Mg/0.368 Ml Pen.injctr 0.5 MG SQ Q7D Trazodone HCl (Trazodone HCl) 50 Mg Tablet Discharge Summary: As per HPI: This is a 64-year-old female with past medical history of cholec ystectomy, hypertension, hypothyroidism came to the ER with a chief complaint of upper abdominal pain which started at 3:00 p.m. after a birthday republican. She described the pain as dull aching, located in the epigastric and right upper quadrant region, nonradiating, constant, 7/10. She also had associated nausea and three episodes of vomiting, also had did four episodes of loose and watery bowel movements. Also complained of fever with chills.. Nobody from the republican had similar symptoms. Denies any recent travel history. Denies any similar complaints. Hospital course: On further evaluation AST ALT 483, 2-2, ALP 264, total bili milligan 3.7. Lipase were normal. WBCs within normal limits and procalcitonin on admission 27.68. Was started on IV Zosyn. Abdominal CT was done which showed distal biliary obstruction secondary to periampullary duodenal diverticulum. Ultrasound abdomen shows a CBD measuring 0.5 cm. Pain management with IV pain medications p.r.n.. GI was consulted she was taken for the EGD demonstrated a large duodenal diverticulum without signs of obstruction of the papilla of Vater. Two benign appearing polyps were biopsied. Recommended to get H pylori antigen testing done. Her LFTs have been downtrending, abdominal pain improving. MRCP was done this morning which shows dilation of the CBD in the dayo hepatis region tapering to normal diameter within the pancreatic head. No filling defects within the duct or in the pancreatic head. No dilation of the pancreatic duct. Has a diameter of the CBD was normal and post cholecystectomy ultrasound the most likely diagnosis was thought to be a stricture or a mass at the sphincter of Oddi and recommended ERCP. Contacted Dr. Lee's office, they will be contacting the patient within a week for scheduling her ERCP. Also left a message with Dr. Lee's regarding the same. Her hospital course is uncomplicated she is hemodynamically stable on the day of discharge and her physical exam is as follows: General: awake, alert oriented to place, time, and person HEENT: Mild pallor present, no significant icterus, moist mucous membranes Neck: No masses and tenderness Resp: Unlabored. Lungs clear to auscultation bilaterally. Chest: Normal expansion Cardiovascular: Regular Rate and rhythm, normal S1 and S2 without murmur, rub or gallop Abdomen: Soft nontender. bowel sounds present Neuro: No weakness in the upper and lower limb muscles, power of the muscles 5/5 bilateral upper and lower muscles, knee reflex present bilaterally. Cranial nerves intact Extremities: No cyanosis,clubbing or edema Skin: Warm and Dry. No lesions Psych: Normal affect Discharge medications can be found above. Patient is being discharged with the following advice: Dr Borges the GI doctor will be calling you for follow up visit if you don't hear from him call [phone] Hall within a week, their office will be calling you to schedule an appointment for the ERCP. Continue Levaquin and Flagyl for five days and then stop. Continue Protonix. If condition worsens call 911 or go to the nearest ER immediately. Laboratory Tests Test 12/12/24 04:26 12/12/24 20:13 12/13/24 04:23 White Blood Count 3.8 X10'3 3.0 X10'3 Red Blood Count 4.40 X10'6 4.46 X10'6 Hemoglobin 12.6 g/dl 12.8 g/dl Hematocrit 35.8 % 35.8 % Mean Corpuscular Volume 81.3 FL 80.3 FL Mean Corpuscular Hemoglobin 28.6 PG 28.7 PG Mean Corpuscular Hemoglobin Concent 35.1 g/dL 35.8 g/dL Red Cell Distribution Width 15.3 % 14.9 % Platelet Count 79 X10'3 93 X10'3 Mean Platelet Volume 8.6 FL 8.5 FL Neutrophils (%) (Auto) 81.6 % 76.7 % Lymphocytes (%) (Auto) 10.5 % 14.3 % Monocytes (%) (Auto) 7.1 % 8.7 % Eosinophils (%) (Auto) 0.4 % 0.2 % Basophils (%) (Auto) 0.4 % 0.1 % Neutrophils # (Auto) 3.1 X10'3 2.3 X10'3 Lymphocytes # (Auto) 0.4 X10'3 0.4 X10'3 Monocytes # (Auto) 0.3 X10'3 0.3 X10'3 Eosinophils # (Auto) 0.0 X10'3 0.0 X10'3 Basophils # (Auto) 0.0 X10'3 0.0 X10'3 CBC Comment Sodium Level 140 MMOL/L 142 MMOL/L Potassium Level 3.0 MMOL/L 3.7 MMOL/L 3.7 MMOL/L Chloride Level 105 MMOL/L 106 MMOL/L Carbon Dioxide Level 29.9 MMOL/L 32.3 MMOL/L Anion Gap 5 4 Blood Urea Nitrogen 7 MG/DL 4 MG/DL Creatinine 0.69 MG/DL 0.65 MG/DL Estimated GFR/1.73 m2 86 ML/MIN > 90 ML/MIN BUN/Creatinine Ratio 10.1 6.2 Glucose Level 115 MG/DL 90 MG/DL Calcium Level 9.0 MG/DL 9.3 MG/DL Magnesium Level 1.6 MG/DL 1.5 MG/DL Total Bilirubin 5.7 MG/DL 2.5 MG/DL Aspartate Amino Transf (AST/SGOT) 169 U/L 48 U/L Alanine Aminotransferase (ALT/SGPT) 315 U/L 178 U/L Alkaline Phosphatase 174 IU/L 153 IU/L Total Protein 5.4 G/DL 5.5 G/DL Albumin 2.7 G/DL 2.6 G/DL Globulin 2.7 G/DL 2.9 G/DL Albumin/Globulin Ratio 1.0 0.9 Triglycerides Level 75 MG/DL Cholesterol Level 123 MG/DL LDL Cholesterol 62 MG/DL HDL Cholesterol 46 MG/DL Cholesterol/HDL Ratio 2.7 Chemistry Comments Differential Total Cells Counted 100 Neutrophils % (Manual) 79.0 % Lymphocytes % (Manual) 10.0 % Monocytes % (Manual) 11.0 % Platelet Estimate Decreased Red Blood Cell Morphology Normal Basophilic Stippling Procalcitonin 8.00 NG/ML MRCP: IMPRESSION: 1. There is dilatation of the common bile duct in the dayo hepatis region tapering to a normal diameter within the pancreatic head. No filling defects within the duct or in the pancreatic head. No dilatation of the pancreatic duct. 2. As the diameter of the common bile duct was normal on post cholecystectomy ultrasound the most likely diagnosis is either a stricture or mass at the sphincter of Oddi. Recommend ERCP CT abdomen pelvis: IMPRESSION: Distal biliary obstruction likely secondary to a periampullary duodenal diverticulum. Recommend GI/Surgical consultation. *Problems/Diagnosis: (1) Duodenal diverticulum (2) Abdominal pain (3) Status post cholecystectomy Status: Acute Total Time Spent on D/C: > 30 Minutes Date of Service: Dec 13, 2024 Billing Provider: SLAVA EDMONDS MD Common Visit Codes: 23234-XVA/OBS DISCH DAY >30min RASHEEDA NOBLE RES Dec 13, 2024 18:40 SLAVA EDMONDS MD Dec 14, 2024 07:51
== END 2024-12-13 15:26 | disposition home or self-care (01) | DRG 392 ==
LOC: ER 20:23 → ED HOLD 12-11 02:00 → SUR 3N 12-11 03:15
PROVIDERS: ADMIT Internal Medicine; ATTEND Internal Medicine
PROC: BW211ZZ Computerized Tomography (CT Scan) of Abdomen and Pelvis using Low Osmolar Contrast (ICD-10-PCS; 2024-12-10)
PROC: 0DB98ZX Excision of Duodenum, Via Natural or Artificial Opening Endoscopic, Diagnostic (ICD-10-PCS; principal; 2024-12-12 10:05)
DX: K57.10 Diverticulosis of small intestine without perforation or abscess without bleeding (principal); K80.50 Calculus of bile duct without cholangitis or cholecystitis without obstruction; E87.6 Hypokalemia; E66.9 Obesity, unspecified; Z68.29 Body mass index [BMI] 29.0-29.9, adult; I10 Essential (primary) hypertension; R74.01 Elevation of levels of liver transaminase levels; E03.9 Hypothyroidism, unspecified; K31.7 Polyp of stomach and duodenum; Z90.49 Acquired absence of other specified parts of digestive tract
CPT/HCPCS: 36415; 43239; 71045; 74177; 74181; 76700; 80053; 80061; 80320; 81001; 82248; 83036; 83690; 83735; 83880; 84132; 84145; 84484; 85007; 85025; 87081; 88305; 93005; 99285; G0378; J2003; J2060; J2250; J2270; J2405; J2543; J2704; J3010; J3480; J7030; J7042; Q9967

== ENCOUNTER 2025-03-30 06:50 | Day surgery (SDC) | payer MEDICARE, OTHER ==
[~2025-03-30] VITALS: Ht 165.1 cm; Wt 98.6 kg
[~2025-03-30 06:50] MED LIST changes: +ACYC-126 PO; +COLC0.6T78 PO; +ENAL-78 PO; +HYDR-3964 PO; +HYDR25TA4 PO; +LEVO150T8 PO; +LIOT5TAB10 PO; -MECL-302 PO; +NAPR-1168 PO; +TRAZ-251 PO; +simethicone 40mg/0.6ml oral drops 15ml PO ONE
[2025-03-30 07:04] VITALS: BP 139/89; PULSE 60; RESP 16; TEMP 98.6; O2SAT 99
[2025-03-30] MEDS: ringers solution, lacted 1,000 ML IV SCH (07:21)
[2025-03-30] MEDS ORDERED: propofol inj 20 ML IV ONE ×2 (10:00→10:22)
[2025-03-30 10:27] VITALS: BP 104/65; PULSE 57; RESP 14; O2SAT 97
[2025-03-30 10:40] VITALS: BP 111/65; PULSE 51; RESP 10; O2SAT 99
[2025-03-30 10:50] VITALS: BP 127/71; PULSE 56; RESP 12; O2SAT 98
[2025-03-30 11:00] VITALS: BP 131/73; PULSE 57; RESP 11; O2SAT 98
== END 2025-03-30 11:07 | disposition home or self-care (01) ==
LOC: GI LAB 06:50
PROVIDERS: ATTEND Internal Medicine Gastroenterology
DX: K52.9 Noninfective gastroenteritis and colitis, unspecified (principal); K57.30 Diverticulosis of large intestine without perforation or abscess without bleeding; I10 Essential (primary) hypertension; E66.9 Obesity, unspecified; M79.7 Fibromyalgia; Z79.899 Other long term (current) drug therapy; Z90.49 Acquired absence of other specified parts of digestive tract; Z98.890 Other specified postprocedural states; Z68.36 Body mass index [BMI] 36.0-36.9, adult
CPT/HCPCS: 45380; 82948; 88305; A4620; J2704; J7120; Z7512; Z7610